=== PATIENT | female | born 1975 | race Caucasian/White ===

== ENCOUNTER 2021-06-02 18:42 | Emergency (ER) | payer OTHER ==
[2021-06-02] MEDS ORDERED: FLEXERIL5 MG PO (21:07)
== END 2021-06-02 21:55 | disposition home or self-care (01) ==
LOC: FER 18:42
DX: S06.0X0A Concussion without loss of consciousness, initial encounter (principal); S16.1XXA Strain of muscle, fascia and tendon at neck level, initial encounter; S00.03XA Contusion of scalp, initial encounter; V49.49XA Driver injured in collision with other motor vehicles in traffic accident, initial encounter
CPT/HCPCS: 70450; 71260; 72125; 72128; Q9967